=== PATIENT | female | born 1980 | race Two or more races ===

== ENCOUNTER 2018-06-17 21:02 | Emergency (ER) | payer OTHER ==
[~2018-06-17] VITALS: Ht 165.1 cm; Wt 63.5 kg
[2018-06-17 22:00] VITALS: BP 146/98
[2018-06-17] MEDS ORDERED: ONDANSETRON 4 MG TAB.RAPDIS ONE (23:48)
[2018-06-17] MEDS ORDERED: HYDROCODONE/APAP 5/325MG 1 EACH TABLET ONE (23:48)
[2018-06-17] MEDS ORDERED: LIDOCAINE /MPF 1% VIAL 5 ML VIAL ONE (23:52)
[2018-06-18] MEDS ORDERED: HYDROCODONE/APAP 5/325MG 1 EACH TABLET PO ONE
[2018-06-18] MEDS ORDERED: ONDANSETRON 4 MG TAB.RAPDIS SL ONE
[2018-06-18] MEDS ORDERED: LIDOCAINE /MPF 1% VIAL 5 ML VIAL IJ ONE
== END 2018-06-18 00:31 | disposition home or self-care (01) ==
LOC: ER 21:02
DX: K05.219 Aggressive periodontitis, localized, unspecified severity (principal)
CPT/HCPCS: 41800; 99283; A4606; A6402; J3490; Q0162